=== PATIENT | male | born 1990 | race Caucasian/White ===

== ENCOUNTER 2017-06-25 19:14 | Emergency (ER) | payer MEDICAID, OTHER ==
[2017-06-25] MEDS ORDERED: BUPIVAcaine/PF 2.5 mg/ml (0.25%) 30ml vial IJ ONE (21:40)
[2017-06-25] MEDS ORDERED: TETanus/Pertussis (Acell)/Diphther VAC/PF (Tdap-Adult) 0.5ml syringe IM ONE (21:40)
[2017-06-25 22:36] VITALS: BP 140/94
== END 2017-06-25 22:41 | disposition home or self-care (01) ==
LOC: EDBD 19:15 → ER 19:15
DX: L72.3 Sebaceous cyst (principal); F12.10 Cannabis abuse, uncomplicated; F17.200 Nicotine dependence, unspecified, uncomplicated; Z86.14 Personal history of Methicillin resistant Staphylococcus aureus infection
CPT/HCPCS: 10060; 90471; 90715; 99283; A6449; J3490